=== PATIENT | male | born 1940 | race African-American/Black ===

== ENCOUNTER 2018-01-13 08:42 | Emergency (ER) | payer OTHER ==
[~2018-01-13] VITALS: Ht 172.7 cm; Wt 99.8 kg
[2018-01-13] MEDS ORDERED: ELIQUIS5 MG PO (09:12)
[2018-01-13] MEDS ORDERED: RESTASIS1 EACH OPHTHALMIC (09:13)
[2018-01-13] MEDS ORDERED: NEURONTIN 300300 M1 PO (09:13)
[2018-01-13] MEDS ORDERED: HYDROCHLOROTHIA25 M2 PO (09:14)
[2018-01-13] MEDS ORDERED: NORCO 5-325 TA1 EACH PO (09:14)
[2018-01-13] MEDS ORDERED: GLYBURIDE 2.52.5 MG PO (09:14)
[2018-01-13] MEDS ORDERED: PRAVACHOL40 MG PO (09:15)
[2018-01-13] MEDS ORDERED: LISINOPRIL20 MG PO (09:15)
[2018-01-13] MEDS ORDERED: VERAPAMIL E.R240 M1 PO (09:15)
[2018-01-13 09:42] LABS: ABSOLUTE NEUTROPHILS 5.3 thou/uL (1.4-8.2); BASOPHILS 0.4 % (0.0-2.0); EOSINOPHILS 0.5 % (0.0-3.0); HEMATOCRIT 40.5 % (42.0-52.0); HEMOGLOBIN 14.3 gm/dL (14.0-18.0); LYMPHOCYTES 16.5 % (24.0-44.0); MCH 34.2 pg (26.0-34.0); MCHC 35.3 g/dL (28.0-37.0); MCV 96.9 fL (80.0-100.0); MONOCYTES 7.5 % (1.0-8.0); PLATELET COUNT 234 thou/uL (150-400); POLYS 75.1 % (36.0-66.0); RBC 4.18 mil/uL (4.50-6.00); RDW 12.7 % (10.5-14.5); WBC 7.1 thou/uL (4.0-11.0)
[2018-01-13] MEDS ORDERED: SERTRALINE HCL50 MG PO (09:42)
[2018-01-13] MEDS ORDERED: ERYTHROMYCIN E3.5 G2 (09:42)
[2018-01-13 09:49] LABS: CALCIUM 9.2 mg/dL (8.5-10.1); CREATININE 1.1 mg/dL (0.7-1.3); POTASSIUM 3.7 mmol/L (3.5-5.1)
[2018-01-13 10:20] VITALS: BP 161/110
== END 2018-01-13 10:27 | disposition short-term general hospital (02) ==
LOC: ER 08:42
PROVIDERS: Emergency Medicine
DX: H40.212 Acute angle-closure glaucoma, left eye (principal); I48.91 Unspecified atrial fibrillation; E11.9 Type 2 diabetes mellitus without complications; Z79.899 Other long term (current) drug therapy; Z87.891 Personal history of nicotine dependence